=== PATIENT | female | born 1995 | race Caucasian/White ===

== ENCOUNTER 2018-11-19 00:07 | Emergency (ER) | payer MEDICAID ==
[~2018-11-19] VITALS: Ht 162.6 cm; Wt 93.4 kg
[2018-11-19 00:15] VITALS: Ht 162.6 cm; Wt 93.4 kg
[2018-11-19 03:11] LABS: UA SPECIFIC GRAVITY 1.015 (1.005-1.035); microscopic required? YES; urine erythrocyte NEGATIVE (NEGATIVE)
[2018-11-19 04:23] VITALS: BP 118/70
== END 2018-11-19 04:23 | disposition home or self-care (01) ==
LOC: EDSEX 00:07 → ED 00:07
PROVIDERS: Emergency Medicine
DX: O23.42 Unspecified infection of urinary tract in pregnancy, second trimester (principal); Z88.0 Allergy status to penicillin; Z3A.16 16 weeks gestation of pregnancy

== ENCOUNTER 2019-06-12 00:04 | Emergency (ER) | payer OTHER ==
[~2019-06-12] VITALS: Ht 165.1 cm; Wt 94.3 kg
[2019-06-12 00:12] VITALS: Ht 165.1 cm; Wt 94.3 kg
[2019-06-12 01:59] VITALS: BP 113/64
== END 2019-06-12 01:59 | disposition home or self-care (01) ==
LOC: ED 00:04
DX: G44.209 Tension-type headache, unspecified, not intractable (principal); R11.2 Nausea with vomiting, unspecified; Z88.0 Allergy status to penicillin
CPT/HCPCS: J1885; J2765; J7030

== ENCOUNTER 2019-08-04 17:00 | Emergency (ER) | payer OTHER ==
[~2019-08-04] VITALS: Ht 165.1 cm; Wt 93.0 kg
[2019-08-04 17:02] VITALS: BP 157/93; Ht 165.1 cm; Wt 93.0 kg
== END 2019-08-04 18:37 | disposition home or self-care (01) ==
LOC: ED 17:00
DX: S13.4XXA Sprain of ligaments of cervical spine, initial encounter (principal); M54.6 Pain in thoracic spine; Z86.2 Personal history of diseases of the blood and blood-forming organs and certain disorders involving the immune mechanism; Z88.0 Allergy status to penicillin; V43.62XA Car passenger injured in collision with other type car in traffic accident, initial encounter; Y93.89 Activity, other specified; Y92.488 Other paved roadways as the place of occurrence of the external cause; Y99.8 Other external cause status

== ENCOUNTER 2019-10-20 07:49 | Emergency (ER) | payer OTHER ==
[~2019-10-20] VITALS: Ht 165.1 cm; Wt 96.2 kg
[2019-10-20 07:53] VITALS: Ht 165.1 cm; Wt 96.2 kg
[2019-10-20 12:08] VITALS: BP 126/74
== END 2019-10-20 09:20 | disposition home or self-care (01) ==
LOC: ED 07:49
DX: L72.3 Sebaceous cyst (principal); L08.9 Local infection of the skin and subcutaneous tissue, unspecified; Z86.2 Personal history of diseases of the blood and blood-forming organs and certain disorders involving the immune mechanism; Z88.0 Allergy status to penicillin
CPT/HCPCS: J2001

== ENCOUNTER 2019-10-22 11:12 | Emergency (ER) | payer OTHER ==
[~2019-10-22] VITALS: Ht 165.1 cm; Wt 96.6 kg
[2019-10-22 11:30] VITALS: Ht 165.1 cm; Wt 96.6 kg
[2019-10-22 14:01] VITALS: BP 108/69
== END 2019-10-22 14:01 | disposition home or self-care (01) ==
LOC: ED 11:12
DX: L02.212 Cutaneous abscess of back [any part, except buttock and flank] (principal); Z88.0 Allergy status to penicillin